=== PATIENT | female | born 1965 | race Caucasian/White ===

== ENCOUNTER → 2016-12-20 | Day surgery (SDC) | payer OTHER ==
[2016-12-20 14:15] LABS: HCT 37.1 % (37.0-47.0); HGB 12.6 g/dl (12.5-16.0); MCH 32.8 pg (25.0-31.0); MCV 96.6 fL (78.0-100.0); MPV 10.9 fL (6.0-9.5); RBC 3.84 M/uL (4.20-5.40); RDW 12.7 % (11.5-14.0); WBC 5.4 K/uL (4.0-10.5)
== END | disposition home or self-care (01) ==
LOC: FAS 13:42
PROVIDERS: Orthopaedic Surgery
DX: S82.841A Displaced bimalleolar fracture of right lower leg, initial encounter for closed fracture (principal); K57.90 Diverticulosis of intestine, part unspecified, without perforation or abscess without bleeding; Z88.5 Allergy status to narcotic agent; Z98.51 Tubal ligation status; Z90.49 Acquired absence of other specified parts of digestive tract
CPT/HCPCS: 36415; 73600; 76000; 84703; C1713; C1769; J1170; J2405; J2704; J3010